=== PATIENT | male | born 1970 | race Two or more races ===

== ENCOUNTER 2020-03-04 16:04 | Emergency (ER) | payer BC ==
[~2020-03-04] VITALS: Ht 180.3 cm; Wt 118.7 kg
[2020-03-04 16:20] VITALS: BP 161/103
[2020-03-04] MEDS ORDERED: NAPR-514 PO (16:37)
--- NOTE | 2020-03-04 16:38 | PHYS DOC ---
Past History Past Medical History: No Pertinent History (DARIA TORRES APRN) Past Surgical History: No Surgical History (DARIA TORRES APRN) Alcohol Use: None (DARIA TORRES APRN) Adult General Chief Complaint Chief Complaint: LOWEREXTREMITY INJURY [facility] HPI Patient is a 49-year-old male presents the emergency room for evaluation of left calf injury. He reports today he was fishing, [place] he was [place] the [place] he felt a pop in his left calf. Denies other injuries. He is able to flex and dorsiflex the ankle. He has no pain to the knee. No numbness or tingling. (DARIA TORRES APRN) Review of Systems Review of Systems Constitutional: Denies fever or chills [] Eyes: Denies change in visual acuity, redness, or eye pain [] HENT: Denies nasal congestion or sore throat [] Respiratory: Denies cough or shortness of breath [] Cardiovascular: No additional information not addressed in HPI [] GI: Denies abdominal pain, nausea, vomiting, bloody stools or diarrhea [] : Denies dysuria or hematuria [] Musculoskeletal: Reports left calf pain [] Integument: Denies rash or skin lesions [] Neurologic: Denies headache, focal weakness or sensory changes [] Endocrine: Denies polyuria or polydipsia [] All other systems were reviewed and found to be within normal limits, except as documented in this note. (DARIA TORRES APRN) Allergies Allergies Allergies Coded Allergies Type Severity Reaction Last Updated Verified No Known Drug Allergies 03/04/20 No (DARIA TORRES APRN) Physical Exam Physical Exam Constitutional: Well developed, well nourished, no acute distress, non-toxic appearance. [] HENT: Normocephalic, atraumatic, bilateral external ears normal, oropharynx moist, no oral exudates, nose normal. [] Eyes: PERRLA, EOMI, conjunctiva normal, no discharge. [] Neck: Normal range of motion, no tenderness, supple, no stridor. [] Skin: Warm, dry, no erythema, no rash. [] Back: No tenderness, no CVA tenderness. [] Extremities: Left calf edema and tenderness to medial aspect, full range of motion to the ankle, able to flex and dorsiflex the foot, Achilles tendon intact, no clubbing, ROM intact. [] Neurologic: Alert and oriented X 3, normal motor function, normal sensory function, no focal deficits noted. [] Psychologic: Affect normal, judgement normal, mood normal. [] (DARIA TORRES APRN) Current Patient Data Vital Signs Vital Signs Date Time Temp Pulse Resp B/P (MAP) Pulse Ox O2 Delivery O2 Flow Rate FiO2 03/04/20 16:20 111 20 161/103 (122) 96 (DARIA TORRES APRN) EKG EKG [] (DARIA TORRES APRN) Radiology/Procedures Radiology/Procedures [Left calf wrapped with Tim wrap for comfort and swelling, crutches with crutch training per RN, weight-bear as tolerated] (DARIA TORRES APRN) Heart Score Risk Factors: Risk Factors: DM, Current or recent (<one month) smoker, HTN, HLP, family history of CAD, obesity. Risk Scores: Risk Factors: DM, Current or recent (<one month) smoker, HTN, HLP, family history of CAD, obesity. (DARIA TORRES APRN) Course & Med Decision Making Course & Med Decision Making Pertinent Labs and Imaging studies reviewed. (See chart for details) [Patient with muscular pain to the left medial calf, likely incomplete tear as he has full range of motion to the foot and ankle, placed in Itm wrap for comfort, crutches for ambulation as needed, may weight-bear as tolerated, primary care or orthopedic follow-up which is provided with discharge instructions. Anti-inflammatory medications daily and ice to the extremity. Discussed these treatments with patient who verbalized understanding.] (DARIA TORRES APRN) Dragon Disclaimer Dragon Disclaimer This electronic medical record was generated, in whole or in part, using a voice recognition dictation system. (DARIA TORRES APRN) Attending Co-Sign The patient was seen and interviewed as well as examined at the bedside. The chart was reviewed. The case was discussed. Agree with the plan of care. (MT LEIGH DO) Departure Departure: Impression: Primary Impression: Gastrocnemius muscle tear Disposition: 01 DC HOME SELF CARE/HOMELESS Referrals: [facility] (PCP) [facility] Patient Instructions: Medial Head Gastrocnemius Tear (Tennis Leg) with Rehab- [facility] Additional Instructions: Follow up with [facility] in 2-3 days , call [phone] to schedule appointment Scripts Naproxen (NAPROXEN) 500 Mg Tablet 1 TAB PO BID for pain for 14 Days, #28 TAB 0 Refills Prov: DARIA TORRES APRN 03/04/20 DARIA TORRES APRN Mar 04, 2020 16:38 MT LEIGH DO Mar 04, 2020 17:50
== END 2020-03-04 16:49 | disposition home or self-care (01) ==
LOC: ER 16:04
DX: S86.812A Strain of other muscle(s) and tendon(s) at lower leg level, left leg, initial encounter (principal); X50.9XXA Other and unspecified overexertion or strenuous movements or postures, initial encounter; Y93.39 Activity, other involving climbing, rappelling and jumping off; Y92.89 Other specified places as the place of occurrence of the external cause; Y99.8 Other external cause status
CPT/HCPCS: 99283